=== PATIENT | female | born 1965 | race Caucasian/White ===

== ENCOUNTER → 2025-01-26 | Outpatient (CLI) | payer OTHER ==
[~2025-01-26] MED LIST: OMEGA-3 1000 MG CAPSULE ONE; PROHANCE 279.3MG/ML 15ML VIAL ONE
== END ==
LOC: M PLAIMG 14:37
PROVIDERS: ATTEND Orthopaedic Surgery Hand Surgery
DX: R60.0 Localized edema (principal)
CPT/HCPCS: 73720; A9576